=== PATIENT | female | born 1940 | race Two or more races ===

== ENCOUNTER 2017-10-08 08:27 | Outpatient (CLI) | payer OTHER | END 2017-10-08 08:42 | disposition home or self-care (01) | LOC: RAD 501 08:27 | DX: J20.8 Acute bronchitis due to other specified organisms (principal) ==

== ENCOUNTER → 2018-12-25 | Outpatient (CLI) | payer OTHER | END | disposition home or self-care (01) | LOC: RAD 09:51 | DX: J45.20 Mild intermittent asthma, uncomplicated (principal) ==

== ENCOUNTER 2019-07-03 10:06 | Outpatient (CLI) | payer OTHER | END 2019-07-03 10:50 | disposition home or self-care (01) | LOC: RAD 10:06 | DX: M15.8 Other polyosteoarthritis (principal); M75.81 Other shoulder lesions, right shoulder; M75.82 Other shoulder lesions, left shoulder ==

== ENCOUNTER 2020-07-22 09:34 | Outpatient (CLI) | payer OTHER | END 2020-07-22 09:52 | disposition home or self-care (01) | LOC: NUCLEAR 09:34 | PROVIDERS: ATTEND Internal Medicine Rheumatology | DX: I87.2 Venous insufficiency (chronic) (peripheral) (principal) ==

== ENCOUNTER 2020-07-25 12:43 | Outpatient (CLI) | payer OTHER | END 2020-07-25 12:48 | disposition home or self-care (01) | LOC: NUCLEAR 12:43 | PROVIDERS: ATTEND Internal Medicine Rheumatology | DX: I70.213 Atherosclerosis of native arteries of extremities with intermittent claudication, bilateral legs (principal) ==